=== PATIENT | female | born 1960 | race Caucasian/White ===

== ENCOUNTER → 2016-11-25 | Day surgery (SDC) | payer BC ==
[~2016-11-25] MED LIST: KETOROLAC TROMETHAMINE 30 MG/ML (IVP) VIAL IV PUSH ONE; LACTATED RINGER'S 1000 ML INJ 1,000 ML ONE; MIDAZOLAM HCL 2 MG/2 ML VIAL ONE; ONDANSETRON HCL 4 MG/2 ML VIAL IV PUSH ONE; PROPOFOL 200 MG/20 ML AMP IV ONE; SODIUM CHLORIDE 0.9% 250 ML ADDBAG IV ONE; VANCOMYCIN HCL 1000 MG VIAL ONE
--- NOTE | 2016-11-25 11:40 | TN ---
cc: KANE GARCIA M.D. DATE OF SURGERY 11/25/2016 PREOPERATIVE DIAGNOSIS Symptomatic supraumbilical hernia. POSTOPERATIVE DIAGNOSIS Symptomatic supraumbilical hernia. PROCEDURE PERFORMED Open supraumbilical hernia repair with mesh. SURGEON Kane Garcia MD [employer] [place] ANESTHESIA General LMA COMPLICATIONS None. INDICATIONS FOR PROCEDURE Ms. Brown is a pleasant 54-year-old female who had a symptomatic bulge just above her umbilicus. It was enlarging and causing her some discomfort. She was seen and evaluated and found to have what appeared to be a chronically incarcerated, fat-containing hernia just above the umbilicus. She was offered elective repair. The risks and benefits of air was discussed with her and she was agreeable. DETAILS The patient was identified, brought to the operating room, placed supine on the operating room table. After adequate general anesthesia was achieved with LMA, the anterior abdomen was prepped and draped in a standard surgical fashion. The hernia had been marked in the preoperative holding area by myself and the patient. 0.25% Marcaine was injected. A transverse incision was made directly overlying the hernia which was just above the umbilicus. Dissection proceeded in the subcutaneous tissue immediately identifying a hernia sac containing a large amount of fat. This was dissected circumferentially. Using gentle manual traction, the fat was reduced back into the abdominal cavity and the hernia sac inverted. The abdominal wall fascia was then cleaned off circumferentially identifying good healthy edges all the way around. 0 Prolene was then used to reapproximate the fascia together primarily. This was accomplished using four sutures. With this the defect was completely closed. Next, an onlay mesh was brought up to the operative field. Four corner stay sutures were placed around the repair with generous fascial overlap in all directions. The mesh was then placed onto the abdominal wall and secured in the four corners using the 2-0 Prolene suture. The mesh was also secured on the superior and inferior border in the midway point. With this, the defect was completely covered in two layers. There was generous mesh overlap with healthy fascia all the way around. The wound was copiously irrigated normal saline solution. The wound was then injected with additional 0.25% Marcaine. The wound was then closed in two layers using a 3-0 and 4-0 Vicryl. Sterile dressings were applied. The patient was awakened and brought to Recovery in stable condition. NOTE Please note that the [employer] assistant was medically necessary due to her specialized surgical skills and knowledge of my surgical technique. MD SAMAN Frank/KIA /11:18 AM /11:31 AM
== END | disposition home or self-care (01) ==
LOC: ESDC 09:09
PROVIDERS: ATTEND Surgery Trauma Surgery
DX: K42.0 Umbilical hernia with obstruction, without gangrene (principal)
CPT/HCPCS: 00750; 49587; C1781; J1885; J2250; J2405; J3010; J3370; J7120